=== PATIENT | female | born 1995 ===

== ENCOUNTER 2018-02-05 17:44 | Emergency (ER) | payer BC ==
--- NOTE | 2018-02-05 18:16 | UC ---
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 LMP 3 days ago. denies f/c/rigors. no LBP. -urgency w/ little output. + frequency. + pain over bladder. no RLQ pain -denies STD risks. denies vaginal d/c or irritation. - History Of Current Complaint Chief Complaint: UCGU Stated Complaint: ABDOMINAL PAIN, URINARY Time Seen by Provider: 02/05/18 18:08 Hx Last Menstrual Period: 01/26/18 Pain Intensity: 6 - Allergies/Home Medications Allergies/Adverse Reactions: Allergies Allergy/AdvReac Type Severity Reaction Status Date / Time No Known Allergies Allergy Verified 02/05/18 18:10 Home Medications: Home Medications Vitamin B Complex CAP* [B Complex CAP*] 1 cap PO DAILY 02/05/18 [History Confirmed 02/05/18] PMH/Surg Hx/FS Hx/Imm Hx Previously Healthy: Yes - Surgical History Surgical History: Yes Surgery Procedure, Year, and Place: oral surgery - Family History Known Family History: Negative: Cardiac Disease, Diabetes - Social History Alcohol Use: Rare Substance Use Type: None Smoking Status (MU): Never Smoked Tobacco Review of Systems Constitutional: Negative Skin: Negative Eyes: Negative ENT: Negative Respiratory: Negative Cardiovascular: Negative Gastrointestinal: Negative Genitourinary: Dysuria, Frequency, Urgency Motor: Negative Neurovascular: Negative Musculoskeletal: Negative Neurological: Negative Psychological: Negative Is Patient Immunocompromised?: No All Other Systems Reviewed And Are Negative: Yes Physical Exam Triage Information Reviewed: Yes Appearance: Well-Appearing, No Pain Distress, Well-Nourished Vital Signs: Initial Vital Signs Temp 97.9 F 02/05/18 18:07 Pulse 72 02/05/18 18:07 Resp 16 02/05/18 18:07 BP 106/61 02/05/18 18:07 Pulse Ox 100 02/05/18 18:07 Vital Signs Reviewed: Yes Eye Exam: Normal ENT Exam: Normal Neck exam: Normal Neck: Positive: Supple, Nontender, No Lymphadenopathy Respiratory: Positive: Lungs clear, Normal breath sounds, No respiratory distress, No accessory muscle use Cardiovascular: Positive: RRR, No Murmur Abdomen Description: Positive: No Organomegaly, Soft, Other: - mild suprapubic tenderness. no RLQ or LLQ tenderness. Negative: CVA Tenderness (R), CVA Tenderness (L), Distended, Guarding Bowel Sounds: Positive: Present Musculoskeletal Exam: Normal Neurological Exam: Normal Psychological Exam: Normal Skin Exam: Normal Complaint Female Dx - Course Course Of Treatment: UA + nitrates, + blood, + protein, + leuk - Differential Dx/Diagnosis Differential Diagnosis/HQI/PQRI: Ovarian Cyst, , Sexually Transmitted Disease Provider Diagnoses: UTI Discharge - Sign-Out/Discharge Documenting (check all that apply): Discharge - Discharge Plan Condition: Stable Disposition: HOME Prescriptions: Nitrofurantoin Macrocrystal [Nitrofurantoin] 100 mg PO BID 5 Days #10 capsule Phenazopyridine TAB* [Pyridium 100 mg TAB*] 100 mg PO TID PRN 3 Days #9 tab PRN Reason: dysuria Patient Education Materials: Urinary Tract Infection in Women (ED) Referrals: No Primary Care Phys,[facility] [Primary Care Provider] - 5 Days [facility] [Provider Group] Additional Instructions: Make sure to go to the ER if you develop worsening symptoms, fevers, chills or significant low back pain. You can call in 2-3 days for definitive results. make sure you drink plenty of water. - Billing Disposition and Condition Condition: STABLE Disposition: HOME
== END 2018-02-05 18:48 | disposition home or self-care (01) ==
LOC: UCCORT 17:44
DX: N39.0 Urinary tract infection, site not specified (principal); B96.20 Unspecified Escherichia coli [E. coli] as the cause of diseases classified elsewhere
CPT/HCPCS: 81003; 87077; 87086; 87186; 99202; G0463